=== PATIENT | female | born 1965 | race African-American/Black ===

== ENCOUNTER 2018-06-26 12:28 | Emergency (ER) | payer MEDICAID ==
[~2018-06-26] VITALS: Ht 157.5 cm; Wt 70.0 kg
[2018-06-26] MEDS ORDERED: IBUPROFEN 600MG TABLET PO ONE (17:00)
[2018-06-26 17:21] VITALS: BP 157/135
== END 2018-06-26 19:21 | disposition home or self-care (01) ==
LOC: ER 12:28
DX: M79.1 Myalgia (principal); F17.200 Nicotine dependence, unspecified, uncomplicated; R03.0 Elevated blood-pressure reading, without diagnosis of hypertension; W01.0XXA Fall on same level from slipping, tripping and stumbling without subsequent striking against object, initial encounter; Y93.89 Activity, other specified; Y92.512 Supermarket, store or market as the place of occurrence of the external cause
CPT/HCPCS: 81025; 99282

== ENCOUNTER 2019-12-17 09:21 | Emergency (ER) | payer MEDICAID ==
[~2019-12-17] VITALS: Ht 162.6 cm; Wt 78.0 kg
[2019-12-17] MEDS ORDERED: CEFTRIAXONE SODIUM 1 G/VIAL IM ONE (10:45)
[2019-12-17] MEDS ORDERED: IBUPROFEN 600MG TABLET PO ONE (10:45)
[2019-12-17 11:08] VITALS: BP 120/85
== END 2019-12-17 11:15 | disposition home or self-care (01) ==
LOC: ER 09:21
DX: K08.89 Other specified disorders of teeth and supporting structures (principal)
CPT/HCPCS: 96372; 99283; J0696